=== PATIENT | male | born 2000 | race Caucasian/White ===

== ENCOUNTER 2022-04-15 20:15 | Emergency (ER) | payer MEDICAID ==
[~2022-04-15] VITALS: Ht 172.7 cm; Wt 81.6 kg
[2022-04-15 20:21] VITALS: BP_SYST 120
--- NOTE | 2022-04-15 20:30 | NUR ---
PT HERE FOR WOUND CHECK. PT STATED THAT HE ACCIDENTALY GOT CUT ON A GLASS ON HIS RT LOWER ARM, NO BLEEDING NOTED AT THIS TIME. PER PT HE WAS HERE TO GET CHECK IF THERE IS NO GLASS ON THE LACERATION AREA. PMH:DENIES PT AAOX4, NOT IN ANY DISTRESS. PENDING MD CARDENAS
--- NOTE | 2022-04-16 00:47 | NUR ---
Patient left without being seen.
== END 2022-04-16 00:47 | disposition left against medical advice (07) ==
LOC: SED 20:15
DX: Z48.00 Encounter for change or removal of nonsurgical wound dressing (principal); Z53.21 Procedure and treatment not carried out due to patient leaving prior to being seen by health care provider
CPT/HCPCS: 73090